=== PATIENT | female | born 1965 | race Caucasian/White ===

== ENCOUNTER 2018-05-04 04:33 | Emergency (ER) | payer BC ==
[2018-05-04] MEDS ORDERED: LORazepam 1 MG Tab PO ONE (04:57)
--- NOTE | 2018-05-04 05:08 | EDM.PDOC ---
ED HPI GENERAL MEDICAL PROBLEM - General Chief Complaint: General Stated Complaint: HYPERTENSION Time Seen by Provider: 05/04/18 04:50 Source of Information: Reports: Patient History Limitations: Reports: No Limitations - History of Present Illness INITIAL COMMENTS - FREE TEXT/NARRATIVE: This patient presents to the ED for evaluation of blood pressure. She has had difficulties with controlling her BP "since 2013." She has recently been seen by her PCP and has had some changes in her medications. She presents this morning because she has taken her labetalol 6 times in the past 24 hours and has remained hypertensive. She was seen by her PCP yesterday and had an increase in her clonidine patch dose. This morning she states she had a headache at the back of her head and "felt like I was going to ." She is also complaining of some nausea with some vomiting. She denies chest pain at this time but states she had some intermittent chest pain. She denies other concerns or complaints. - Related Data Allergies Allergy/AdvReac Type Severity Reaction Status Date / Time codeine Allergy Itching Verified 05/04/18 04:35 erythromycin base Allergy Stomach Verified 05/04/18 04:35 [Erythromycin Base] Upset Home Meds: Home Meds Metoprolol Succinate [Toprol XL 50mg] 100 mg PO DAILY 09/21/13 [History] Ketorolac [Toradol] 10 mg PO Q6H PRN #20 tab 10/03/13 [Rx] Lisinopril 10 mg PO DAILY #30 tablet 10/12/13 [Rx] ED ROS GENERAL - Review of Systems Review Of Systems: See Below Constitutional: Reports: No Symptoms HEENT: Reports: No Symptoms Respiratory: Reports: No Symptoms Cardiovascular: Reports: Chest Pain, Blood Pressure Problem. Denies: Dyspnea on Exertion, Lightheadedness, Orthopnea, Palpitations GI/Abdominal: Reports: No Symptoms Musculoskeletal: Reports: No Symptoms Skin: Reports: No Symptoms Neurological: Reports: Headache Psychiatric: Reports: No Symptoms ED EXAM, GENERAL - Physical Exam Exam: See Below Exam Limited By: No Limitations General Appearance: Alert, WD/WN, No Apparent Distress Eye Exam: Bilateral Eye: PERRL Ears: Normal External Exam Nose: Normal Inspection Throat/Mouth: Normal Inspection Head: Atraumatic, Normocephalic Neck: Normal Inspection, Supple, Non-Tender, Full Range of Motion Respiratory/Chest: No Respiratory Distress, Lungs Clear, Normal Breath Sounds, No Accessory Muscle Use, Chest Non-Tender Cardiovascular: Normal Peripheral Pulses, Regular Rate, Rhythm Extremities: Normal Inspection, Normal Range of Motion Neurological: Alert, Oriented Skin Exam: Warm, Dry, Intact Course - Orders/Labs/Meds Orders: Active Orders 24 hr Category Date Time Status EKG Documentation Completion [RC] ASDIRECTED Care 05/04/18 04:58 Ordered EKG 12 Lead [EK] Routine Ther 05/04/18 04:57 Ordered Meds: Medications Discontinued Medications Generic Name Dose Route Start Last Admin Trade Name Brielle PRN Reason Stop Dose Admin Lorazepam 2 mg 05/04/18 04:57 Ativan PO 05/04/18 04:58 ONETIME ONE - Re-Assessments/Exams Free Text/Narrative Re-Assessment/Exam: This patient presents for evaluation of elevated blood pressure. There is a history of hypertension in the past with recent changes in her medications. The workup here is negative and the patient does not have any clinical, EKG or historical signs of end-organ dysfunction at this time. There is no signs of hypertensive emergency or urgency. Supportive outpatient management is therefore indicated with close follow-up of primary care physician. I suspect that the patient's anxiety related to her blood pressure is contributing to her elevation over the past 24 hours. Given data obtained here in the ED along with her non-focal examination, I will initiate no changes for therapy at this time and encouraged only daily blood pressure monitoring at home to aid primary in decision making regarding hypertension. 05/04/18 05:17 Departure - Departure Time of Disposition: 05:30 Disposition: Home, Self-Care 01 Condition: Fair Clinical Impression: Hypertension - Discharge Information *PRESCRIPTION DRUG MONITORING PROGRAM REVIEWED*: No *COPY OF PRESCRIPTION DRUG MONITORING REPORT IN PATIENT SAÚL: No Instructions: Hypertension Referrals: PCP,None [Primary Care Provider] - - My Orders Last 24 Hours: My Active Orders 05/04/18 04:57 EKG 12 Lead [EK] Routine 05/04/18 04:58 EKG Documentation Completion [RC] ASDIRECTED - Assessment/Plan Last 24 Hours: My Active Orders 05/04/18 04:57 EKG 12 Lead [EK] Routine 05/04/18 04:58 EKG Documentation Completion [RC] ASDIRECTED
== END 2018-05-04 05:50 | disposition home or self-care (01) ==
LOC: LB.ED 04:33
DX: I10 Essential (primary) hypertension (principal)
CPT/HCPCS: 93005; 99283; A9270